=== PATIENT | female | born 1990 | race African-American/Black ===

== ENCOUNTER 2019-09-17 03:40 | Emergency (ER) | payer OTHER ==
[~2019-09-17] VITALS: Ht 180.3 cm; Wt 136.5 kg
[~2019-09-17 03:40] MED LIST: COLACE100 MG; NORCO 5-325 TA1 EACH PO; PRENATAL; iron
[2019-09-17 05:27] VITALS: BP 126/67
== END 2019-09-17 05:32 | disposition home or self-care (01) ==
LOC: ER 03:40
DX: M25.561 Pain in right knee (principal); J45.909 Unspecified asthma, uncomplicated; F17.210 Nicotine dependence, cigarettes, uncomplicated; Z98.890 Other specified postprocedural states

== ENCOUNTER 2020-01-01 10:06 | Emergency (ER) | payer OTHER ==
[~2020-01-01] VITALS: Ht 180.3 cm; Wt 141.1 kg
[2020-01-01] MEDS ORDERED: NORCO 5-325 TA1 EAC1 PO (11:36)
[2020-01-01 11:48] VITALS: BP 141/80
== END 2020-01-01 11:49 | disposition home or self-care (01) ==
LOC: ER 10:06
DX: S93.402A Sprain of unspecified ligament of left ankle, initial encounter (principal); J45.909 Unspecified asthma, uncomplicated; F17.210 Nicotine dependence, cigarettes, uncomplicated; W00.2XXA Other fall from one level to another due to ice and snow, initial encounter; Y93.29 Activity, other involving ice and snow; Y92.89 Other specified places as the place of occurrence of the external cause; Y99.8 Other external cause status